=== PATIENT | male | born 1945 | race Caucasian/White ===

== ENCOUNTER 2019-03-23 10:54 | Inpatient (IN) ==
--- NOTE | 2019-02-22 10:50 | Anesthesiology Consultation ---
Date of Service February 22, 2019 Assessment & Plan (1) Encounter for pre-operative examination: - Check BSG AM DOS - Check coags AM DOS (warfarin instructions per surgeon/prescriber) - Cardio: 02/28/19: "Pt is at an acceptable moderate risk for his orthopedic surgery- no further cardiac testing necessary." Chart Review Chart Review: Acceptable Risk for Surgery and Patient seen in Pre Admission Testing Teaching & Discussion Pre-Anesthesia Teaching/Discussion Notes: Instructed NPO after midnight before surgery,except medications with 15 cc of water. Medication instructions provided according to the PAT guidelines. History Surgery Operation Date: 03/23/19 14:00 Proposed Procedures p Right Shoulder Arthroscopic Subacromial Decompression, Distal Clavicle Excision, Rotator Cuff Repair, Bicep Tenodesis versus Tentatomy - Saran booker MD Height/Weight Height: 6 ft 1 in Weight: 104.2 kg Allergies Allergy/AdvReac Type Severity Reaction Status Date / Time Beta-Blockers AdvReac Unknown NIGHTMARES Verified 02/22/19 11:09 (Beta-Adrenergic Bloc Medications Home Medications Medication Instructions Recorded Confirmed Last Taken ascorbic acid (vitamin C) [Vitamin 500 mg PO QAM 02/14/19 02/14/19 Unknown C] atorvastatin 20 mg PO QAM 02/14/19 02/14/19 Unknown colchicine 0.6 mg PO DAILY PRN 02/14/19 02/14/19 Unknown diltiazem HCl [Cartia XT] 240 mg PO QAM 02/14/19 02/14/19 Unknown hydrochlorothiazide 25 mg PO QAM 02/14/19 02/14/19 Unknown latanoprost 1 drp OPHTHALMIC (EYE) PM 02/14/19 02/14/19 Unknown losartan 100 mg PO QAM 02/14/19 02/14/19 Unknown metformin 500 mg PO BID 02/14/19 02/14/19 Unknown tamsulosin 0.4 mg PO QPM 02/14/19 02/14/19 Unknown warfarin 5 mg PO DAILY 02/14/19 02/14/19 Unknown Past Medical History Medical History Atrial fibrillation CHRONIC ON WARFARIN BPH (benign prostatic hyperplasia) Chronic kidney disease STAGE III Diabetes mellitus, type 2 NIDDM Glaucoma Gout Hyperlipidemia Hypertension Nonischemic cardiomyopathy Rotator cuff tear, right REASON FOR UPCOMING SURGERY Past Surgical History Surgical History History of cardiac radiofrequency ablation History of colectomy 2/2 COLON POLYPS History of laser refractive surgery History of left knee replacement Hx of Achilles tendon repair LEFT Hx of appendectomy Hx of cholecystectomy Hx of repair of left rotator cuff Past Anesthesia History No Hx of Anesthesia Complications and No Family Hx of Anesthesia Complications History of PONV No Motion Sickness Screening History of Motion Sickness: No Social History Smoking Status: Former smoker tobacco type: cigarettes Do You Dip or Chew Tobacco: Yes (1/3 CAN/DAY; ADVISED NOT TO CHEW AM DOS) Smoking End Date: QUIT 14 YEARS AGO Hx Alcohol Use: Yes alcohol intake frequency: holidays/special occasions only Hx Substance Use: No Exercise / Class Metabolic Activity II 4-5 Yardwork/Stairs/Walk up hill Review of Systems Patient denies chest pain, shortness of breath, dyspnea on exertion, cough, wheezing, palpitations. Physical Exam Vital Signs VITALS BP 136/84 P 89 TEMP 97.6 SP02 98%RA RESP 18 PHYSICAL Full neck and c-spine range of motion. Full TMJ range of motion. TMD 3 finger breaths Mallampati Score 3 Dentition: sevceral missing molars Lungs: clear throughout to auscultation Cardiac: irregular rhythm; regular rate, no murmurs noted Spine: normal Carotid arteries: negative bruit Extremities: no edema Small oral opening Testing Electrocardiogram Date: 02/22/19 A. fib with PVC or aberrantly conducted complexes at 82bpm. NS STA. Chest X-Ray Date: 02/22/19 Findings: + NAD Lung volumes are at the upper limits of normal. Echocardiogram Date: 12/03/17 LVEF 44%. Mild diffuse LV HK. Mild LAE. Mild AR. Mild AV sclerosis. Mild SC. Laboratory Results 02/22/19 11:23 02/22/19 11:23 PT 27.5 Seconds (9.0-12.0) H 02/22/19 11:23 INR 2.9 (0.9-1.1) H 02/22/19 11:23 APTT 32.8 Seconds (21.0-31.0) H 02/22/19 11:23 Urine Color Yellow 02/22/19 Unknown Urine Appearance Clear (Clear) 02/22/19 Unknown Urine pH 5.5 (4.5-7.5) 02/22/19 Unknown Ur Specific [place] 1.020 (1.000-1.030) 02/22/19 Unknown Urine Protein Negative (Negative) 02/22/19 Unknown Urine Glucose (UA) Negative (Negative) 02/22/19 Unknown Urine Ketones Negative (Negative) 02/22/19 Unknown Urine Nitrite Negative (Negative) 02/22/19 Unknown Ur Leukocyte Esterase Trace (Negative) H 02/22/19 Unknown Urine WBC (Auto) 1-5 /hpf (0-5) 02/22/19 Unknown Urine RBC (Auto) 0-4 /hpf (0-4) 02/22/19 Unknown U Hyaline Cast (Auto) 0 /lpf (0-5) 02/22/19 Unknown U Epithel Cells (Auto) 0-5 /lpf (0-5) 02/22/19 Unknown Urine Bacteria (Auto) Negative (Negative) 02/22/19 Unknown
--- NOTE | 2019-02-22 10:54 | PAT Medication Instructions ---
Medication Instructions Date of Service February 22, 2019 Home Medications ascorbic acid (vitamin C) [Vitamin 500 mg PO QAM atorvastatin 20 mg PO QAM colchicine 0.6 mg PO DAILY PRN diltiazem HCl [Cartia XT] 240 mg PO QAM hydrochlorothiazide 25 mg PO QAM latanoprost 1 drp OPHTHALMIC (EYE) PM losartan 100 mg PO QAM metformin 500 mg PO BID tamsulosin 0.4 mg PO QPM warfarin 5 mg PO DAILY ASK your prescriber and surgeon warfarin 5 mg PO DAILY STOP taking 24 hours before surgery colchicine 0.6 mg PO DAILY PRN DO NOT take the morning of surgery ascorbic acid (vitamin C) [Vitamin 500 mg PO QAM hydrochlorothiazide 25 mg PO QAM losartan 100 mg PO QAM metformin 500 mg PO BID Take morning of surgery With a small sip of water, OTHERWISE NOTHING TO EAT OR DRINK AFTER MIDNIGHT: atorvastatin 20 mg PO QAM diltiazem HCl [Cartia XT] 240 mg PO QAM Take evening before surgery latanoprost 1 drp OPHTHALMIC (EYE) PM metformin 500 mg PO BID tamsulosin 0.4 mg PO QPM Other Notes If you have any questions please call us at [phone] or [phone] or [phone] or [phone]
--- NOTE | 2019-02-22 11:52 | XRay Report ---
XR chest Pre-admission PA/Lat CLINICAL HISTORY: Preoperative evaluation. COMPARISON STUDY: Chest radiograph March 05, 2010. FINDINGS: Lung volumes are at the upper limits of normal. There is no pneumothorax or pleural effusio n. Cardiac size is normal. Mediastinal contours are normal. No evidence for pulmonary edema. IMPRESSION: No acute cardiopulmonary findings. Electronically signed by: Ernie Madrigal M.D. 02/22/2019 11:51 AM
[2019-02-22 12:17] LABS: Basophils # (auto) 0.03 K/uL (0-0.2); Basophils % (auto) 0.4 %; Eosinophils # (auto) 0.23 K/uL (0-0.5); Eosinophils % (auto) 3.4 %; Hematocrit (blood only) 42.7 % (42-52); Hemoglobin 14.7 g/dL (14.0-18.0); Immature Granulocytes # (auto) 0.02 K/uL (0.00-0.02); Immature Granulocytes % (auto) 0.3 %; Lymphocytes # (auto) 1.53 K/uL (1.2-3.4); Lymphocytes % (auto) 22.8 %; Mean Corpuscular Hgb Conc 34.4 g/dL (32-36); Mean Corpuscular Volume 91.4 fL (80-100); Mean Platelet Volume 10.2 fL (7.4-10.4); Monocytes # (auto) 0.66 K/uL (0.11-0.59); Monocytes % (auto) 9.8 %; Neutrophils # (auto) 4.24 K/uL (1.4-6.5); Neutrophils % (auto) 63.3 %; Platelet Count 171 K/uL (130-400); RDW Coefficient of Variation 14.2 % (11.5-14.5); RDW Standard Deviation 47.7 fL (36.4-46.3); Red Blood Count 4.67 M/uL (4.7-6.1); White Blood Count 6.71 K/uL (4.8-10.8)
[2019-02-22 12:24] LABS: Appearance Urine Clear (Clear); Bacteria Urine Automated Negative (Negative); Bilirubin Urine Negative (Negative); Blood Urine Negative (Negative); Cast Urine Automated 0 /lpf (0-5); Color Urine Yellow; Epithelial Cell Urine Auto 0-5 /lpf (0-5); Glucose Urine UA Negative (Negative); Ketones Urine Negative (Negative); Leukocyte Esterase Urine Trace (Negative); Nitrite Urine Negative (Negative); Protein Urine Negative (Negative); RBC Urine Automated 0-4 /hpf (0-4); Urobilinogen Urine Negative (Negative); pH Urine 5.5 (4.5-7.5)
[2019-02-22 12:32] LABS: BUN Creatinine Ratio 20.1 (10-20); Calcium 9.6 mg/dl (8.5-10.1); Creatinine Clr Calc Pharmacy 57.6 ml/min; Est GFR (Non-African American) 46.6; Potassium 4.1 mmol/L (3.5-5.1)
[2019-02-22 12:33] LABS: INR 2.9 (0.9-1.1); Partial Thromboplastin Ratio 1.2; Partial Thromboplastin Time 32.8 Seconds (21.0-31.0); Prothrombin Time 27.5 Seconds (9.0-12.0)
--- NOTE | 2019-03-22 15:08 | History and Physical Report ---
DATE OF ADMISSION: 03/23/2019 CHIEF COMPLAINT: Chronic right shoulder pain. HISTORY OF PRESENT ILLNESS: This is a 73-year-old male patient of Dr. Carpenter who sustained a fall on the ice in the beginning of January. Since then, he has had chronic right shoulder pain that has failed conservative treatment. An MRI has confirmed impingement, AC arthritis, rotator cuff tear and biceps tendinopathy. The patient wished to proceed with surgical intervention at this time. PAST MEDICAL HISTORY: Atrial fibrillation, sleep apnea, diabetes mellitus, hypothyroidism, obesity. SOCIAL HISTORY: Nonsmoker, nondrinker. PAST SURGICAL HISTORY: Left knee, left shoulder, right Achilles, appendectomy, cholecystectomy. FAMILY HISTORY: Noncontributory. REVIEW OF SYSTEMS: Chronic right shoulder pain and weakness. Otherwise, denies any shortness of breath, chest pain, nausea, vomiting or any other joint complaints. MEDICATIONS: Atorvastatin 20 mg daily, diltiazem 240 mg daily, hydrochlorothiazide 25 mg daily, losartan 100 mg daily, metformin 500 mg twice daily, Flomax 0.4 mg daily, Coumadin 5 mg as directed, colchicine 0.6 mg twice daily, latanoprost 0.005% ophthalmic solution 1 drop in each eye at bedtime, vitamin C 500 mg chewable tablet daily. ALLERGIES: No known drug allergies. PHYSICAL EXAMINATION: GENERAL: Well-developed, well-nourished 73-year-old male in no acute distress. He is alert and oriented x3 and pleasant. HEENT: Normocephalic, atraumatic. Extraocular motions are intact. Pupils equal, reactive to light. HEART: Regular rate and rhythm. No murmurs. LUNGS: Clear. ABDOMEN: Soft, nontender, bowel sounds present. EXTREMITIES: Right shoulder reveals full range of motion with pain. He has positive [place]'s, positive impingement maneuvering. He is tender over his AC joint. He has 3+ to 4/5 strength globally. NEUROLOGIC: Neurovascularly, he is intact in his right upper extremity. DIAGNOSES: Right shoulder impingement, acromioclavicular arthritis, rotator cuff tear, and biceps tendinopathy. He also has a history of atrial fibrillation, sleep apnea, diabetes mellitus, hypothyroidism, and obesity. PLAN: The patient was advised of his diagnosis. Indications, risks, benefits, postop course have all been reviewed. The patient wished to proceed with a right arthroscopic subacromial decompression, distal clavicle excision, rotator cuff repair and biceps tenodesis versus tenotomy. Necessary consent forms, preoperative testing and clearances will be obtained.
[~2019-03-23 10:54] MED LIST: LR 15ML/HR IV SCH; LR 500ML BOLUS, THEN 15ML/HR IV SCH; ROPIVACAINE 0.5% 5 MG/ML 30 ML VIAL ONE
[2019-03-23] MEDS ORDERED: ONDANSETRON INJ 2 MG/ML 2 ML VIAL ONE (11:50)
[2019-03-23] MEDS ORDERED: MIDAZOLAM HCL 1 MG/ML 2ML VIAL ONE (11:50)
[2019-03-23] MEDS ORDERED: LIDOCAINE HCL 2% 2 ML VIAL/AMP(20MG/ML) INFIL ONE (11:50)
[2019-03-23] MEDS ORDERED: PROPOFOL IV EMULSION 10 MG/ML 20 ML VIAL IV ONE (11:50)
[2019-03-23] MEDS ORDERED: fentaNYL citrate 100 MCG/2 ML VIAL ONE (11:51)
--- NOTE | 2019-03-23 12:08 | History & Physical Bridge Note ---
Date of Service March 23, 2019 History & Physical Bridge Note I have examined the patient, reviewed the History & Physical and in the interval since the performance of the History & Physical I have noted the following changes of clinical significance: no changes noted
[2019-03-23] MEDS ORDERED: ePHEDrine sulfate 50 MG/ML AMP IV PRN (12:38)
[2019-03-23] MEDS ORDERED: ONDANSETRON INJ 2 MG/ML 2 ML VIAL IV PRN ×2 (12:38→18:55)
[2019-03-23] MEDS ORDERED: fentaNYL citrate 100 MCG/2 ML VIAL IV PRN (12:38)
[2019-03-23] MEDS ORDERED: ATROPINE SULFATE 0.1 MG/ML 10ML SYR IV PRN (12:38)
[2019-03-23 12:39] LABS: INR 1.1 (0.9-1.1); Partial Thromboplastin Ratio 0.9; Partial Thromboplastin Time 25.6 Seconds (21.0-31.0); Prothrombin Time 11.5 Seconds (9.0-12.0)
[2019-03-23] MEDS ORDERED: EpINEphrine HCL INJ 1 MG/ML 1ML SYRINGE ONE (13:22)
[2019-03-23] MEDS: CEFAZOLIN 2000MG 2,000 MG/15 ML SYR IV SCH ×2 (14:12→14:13)
[2019-03-23] MEDS ORDERED: EPINEPHrine HCL INJ 1 MG/ML 30ML ONE (14:27)
--- NOTE | 2019-03-23 15:05 | Procedure Note ---
Procedure Note Date of Service March 23, 2019 Supervising Physician Co-Signing Physician Notes Radial arterial line placed in ASU 2 in preparation for shoulder arthroscopy with Dr. Curran. Left wrist prepped with chlorhexidine and draped with sterile towels. Site infiltrated with 1 cc of 1% lidocaine. 20 G angiocath placed under sterile technique utilizing sterile gloves, surgical hats and masks. Catheter threaded using seldinger technique with return of pulsatile, bright red blood. Site covered with occlusive dressing and taped in place. Waveform consistent with correct arterial placement. After placement, fingers of procedural hand had normal perfusion. Patient tolerated procedure well without complications. Coding
[2019-03-23] MEDS ORDERED: NEOSTIGMINE METHYLSULFATE 5 MG/5 ML SYR ONE (16:01)
[2019-03-23] MEDS ORDERED: ROCURONIUM BROMIDE 10 MG/ML 5 ML VIAL ONE (16:01)
[2019-03-23] MEDS ORDERED: GLYCOPYRROLATE 0.2 MG/ML VIAL ONE (16:01)
[2019-03-23] MEDS ORDERED: PHENYLEPHRINE HCL 10 MG/ML VIAL ONE (16:55)
--- NOTE | 2019-03-23 17:35 | Post Operative Brief Note ---
Immediate Post Op Note v1 Date of Surgery March 23, 2019 Pre & Post Diagnosis Operation Date: 03/23/19 14:00 Pre-Op Diagnosis: Right Shoulder chronic posttraumatic rotator cuff tear AC joint arthritis impingement syndrome biceps tendinopathy Post-Op Diagnosis: Right shoulder large retracted chronic posttraumatic rotator cuff tear synovitis glenohumeral joint, glenohumeral joint osteoarthritis, degenerative glenoid labral tear, ruptured biceps tendon long head, chronic subacromial bursitis with bursal adhesions. Procedure Operation Date: 03/23/19 14:00 Actual Procedures p Right Shoulder Arthroscopic Subacromial Decompression, Distal Clavicle Excision, Rotator Cuff Repair, Debridement of Glenohumeral Joint(Right), subacromial bursectomy release subacromial bursal adhesions and anterior superior capsule release.- Saran Curran MD Surgeon Saran Curran MD Desk Operator Juni ZEE Estimated Blood Loss 20 Findings Consistent with Post-Op Diagnosis Anesthesia Type General Regional Complications none Disposition Accompanied Patient To Recovery: No Disposition: Recovery Room Overlapping Procedure I was immediately available: during the entire case.
--- NOTE | 2019-03-23 17:43 | Operative Report ---
Post Operative Report Pre & Post Diagnosis Operation Date: 03/23/19 14:00 Pre-Op Diagnosis: Chronic retracted right shoulder posttraumatic rotator cuff tear, AC joint arthritis impingement syndrome biceps tendinopathy Post-Op Diagnosis: Chronic retracted right shoulder posttraumatic rotator cuff tear, AC joint arthritis impingement syndrome, glenohumeral osteoarthritis and synovitis, degenerative glenoid labral tear, subacromial bursitis bursal adhesions, long head biceps rupture. Procedure Operation Date: 03/23/19 14:00 Actual Procedures p Right Shoulder Arthroscopic Subacromial Decompression, Distal Clavicle Excision, Rotator Cuff Repair, Debridement of Glenohumeral Joint(Right) and labrum, subacromial bursectomy with release subacromial bursal adhesions, anterior superior capsule release.- Saran Curran MD Surgeon Saran Curran MD [employer] Deputy Director Juni ZEE Estimated Blood Loss 20 Findings Consistent with Post-Op Diagnosis Specimens None Anesthesia Type General Regional Complications None Disposition Accompanied Patient To Recovery: No Disposition: Recovery Room Indications 73-year-old male with right shoulder pain weakness status post a subacute fall. Patient never regained strength never drained normal function has chronic weakness dysfunction of the shoulder. X-rays and MRI demonstrate type III acromion hypertrophic AC joint arthritis large rotator cuff tear with retraction involving supraspinatus and infraspinatus biceps tendinopathy. Description of Procedure The patient was to the operating room anesthetized under regional block and general anesthesia. The patient was positioned on the operating table in the 70 beachchair position. All of the other extremities were well-padded. The right upper extremity was prepped and draped in the usual sterile fashion. Examination demonstrated good passive range of motion subacromial crepitation some hypertrophy AC joint. Arthroscopy of the shoulder was performed via anterior and posterior arthroscopy portals. Posterior portal was placed in the soft spot and the anterior portal was placed in the rotator interval. Subsequent portals included lateral subacromial working portal and posterior superior lateral and anterior superior lateral incisions for suture anchor placement, and anterolateral small incision for traction suture. The following findings were noted: The glenohumeral joint findings demonstrated there was a 15 mm diameter area of grade 4 wear on the humeral head with delaminating edges toward the anterior superior humeral head. Remainder the humerus had good articular surface. The glenoid still had intact articular surface. There is an anteroinferior glenoid labral tear with a displaced flap. Biceps tendon was torn and retracted. There was synovitis of the glenohumeral joint. The subscapularis tendon was intact. The supraspinatus tendon was torn and retracted as well as the infraspinatus tendon which was torn and retracted. The teres minor was still intact. There was a split between the teres minor and infraspinatus. There was some tendinopathy of the teres minor at the attachment site. At the area of the tear there were small tongues of intact tissue of the supraspinatus and infraspinatus where there is soft tissue failure of both tendons with some retained tissue on the greater tuberosity consistent with soft tissue disruption. There was fraying of the CA ligament type III acromion process there is hypertrophic AC joint arthritis there is grade 4 DJD AC joint. There was bursal scarred adhesions medially restricting some of the motion of the rotator cuff. There is synovitis of the capsule and glenohumeral joint. Attention was first taken to performing a thorough debridement of the glenohumeral joint. All the delaminated flaps around the chondral lesion of the humeral head were removed and the bone was lightly debrided. The labrum was debrided back to stable intact tissue. Remnants of the biceps superior labral debrided back to the labrum. I moved some of the synovium in the rotator interval area and coagulate bleeders as necessary with the radio frequency ablator. I did a into superior capsular release exposing the base of the coracoid and releasing under the supraspinatus and infraspinatus tendons I released and the capsules were again mobilized chronically retracted rotator cuff tear. The footprint of the supraspinatus and infraspinatus were debrided removing all the remaining tissue that was still in the greater tuberosity and debrided from the articular margin out the lateral greater tuberosity. Then in the subacromial space I did a thorough subacromial bursectomy to fully visualize rotator cuff tear pattern. I debrided some of the superior surface of the teres minor and lightly debride the edges of the tear and placed a traction suture was scorpion suture passer and a large stack technique through the infraspinatus and then through an accessory portal passed the suture out so we could use lateral portals working portal working cannula. Then placed traction on the rotator cuff and then started releasing the bursal adhesions on the bursal surface gradually toes so we could mobilize the rotator cuff up. I was able to mobilize rotator cuff to cover about 50% of the footprint but loose tendon loss and retraction so we could not reduce it on a percent back to normal without any tension on repair which would increase risk of failure so I chose to do some medialization using the resector blade to take the articular surface back about 4 more millimeters exposing similar bone at the footprint articular surface junction so that we could medialize repair under less tension. The rotator cuff was then repaired with a [id number] #2 ultra braid suture between the infraspinatus and teres minor posteriorly a FiberWire tape was used as ripstop suture technique through the infraspinatus and supraspinatus placed in inverted mattress fashion. A triple loaded Helicoil anchor midway in the footprint of the infraspinatus and supraspinatus which were 5.5 [employer] helical anchors. The ultra braid sutures were passed around the ripstop suture when possible for additional fixation. The 6 sutures were passed spent in the rotator cuff tear from anterior to posterior and then the sutures were tied in simple fashion and then the FiberWire tapes were placed into 5.5 footprint anchors laterally take tension off the repair for additional repair support. The repair was secure with the arm at the side without tension. The repair was secure with gentle range of motion. Bone quality was actually fairly good and held the anchors well. The bursa and periosteum on the undersurface of the acromion was ablated with the radiofrequency ablator and the CA ligament was released off the anterior acromion. The CA ligament was debrided back. A 5.5 bur was used to plane down the acromion to type I flat shape. A radio frequency ablator was used to ablate the undersurface of 1 cm of the distal clavicle ablating the inferior capsule. This exposed the spurs on the undersurface of the clavicle. A 5.5 bur was used to resect 1 cm distal clavicle using the kayden through both the lateral and anterior portal. The superior and posterior capsule was preserved for stability. The portal sites were closed with interrupted nylon sutures. Sterile dressings were applied and a sling immobilizer. The patient tolerated the procedure well. My physician nurses assistant Juni ZEE, assisted in arm positioning, instrument management, suture management when indicated, incision closure, sling application, and will participate in the postoperative care of the patient. I attest to the content of the Intraoperative Record and any orders documented t herein. Any exceptions are noted below.
--- NOTE | 2019-03-23 18:03 | Anesthesiology Progress Note ---
Date of Service March 23, 2019 Anesthesia Post Procedure Vital Signs Vital Signs: Temp Pulse Pulse Resp BP Pulse Ox 03/23/19 17:54 103 H 20 102/62 96 03/23/19 17:45 112 H 20 103/66 97 03/23/19 17:36 36.1 C L 112 H 18 97/67 L 95 03/23/19 11:55 36.5 C 95 H 20 150/105 H 95 Transfer of Care Handoff Completed per policy Notes Mental Status: alert / awake / arousable and participated in evaluation Patient Amnestic to Procedure: Yes Nausea / Vomiting: adequately controlled Pain: adequately controlled Airway Patency, RR, SpO2: stable & adequate BP & HR: stable & adequate Hydration State: stable & adequate Anesthetic Complications: no major complications apparent
[2019-03-23] MEDS ORDERED: BISACODYL 10 MG SUPP PR PRN (18:55)
[2019-03-23] MEDS ORDERED: HYDROmorphone INJ 0.5 MG/0.5 ML SYR IV PRN (18:55)
[2019-03-23] MEDS ORDERED: NALOXONE HCL 0.4 MG/1 ML VIAL/CARP IV PRN (18:55)
[2019-03-23] MEDS ORDERED: OXYCODONE HCL IR 5 MG TAB (IMMEDIATE RELEASE) PO PRN (18:55)
[2019-03-23] MEDS ORDERED: COLCHICINE 0.6 MG TAB PO PRN (18:55)
[2019-03-23] MEDS ORDERED: MAGNESIUM HYDROXIDE SUSP 30 ML UDC PO PRN (18:55)
[2019-03-23] MEDS ORDERED: METOCLOPRAMIDE HCL INJ 5 MG/ML 2 ML VIAL IV PRN (18:55)
[2019-03-23] MEDS ORDERED: PHARMACY GLYCEMIC MGMT CONSULT PRN (19:53)
[2019-03-23] MEDS ORDERED: WARFARIN SOD 7.5 MG TAB PO SCH (20:00)
[2019-03-23] MEDS: SODIUM CHLORIDE 0.9% 1000ML 1,000 ML IV SCH (20:26)
[2019-03-23] MEDS: DOCUSATE SODIUM 100 MG CAP PO SCH (20:28)
[2019-03-23] MEDS: dilTIAZem HCL 240 MG CAPCR PO SCH (20:29)
[2019-03-23] MEDS: INSULIN ASPART 100 UNITS/ML 3 ML PEN SC SCH (20:39)
[2019-03-23] MEDS ORDERED: SENNA 8.6 MG TAB PO SCH (21:00)
[2019-03-23] MEDS ORDERED: TAMSULOSIN HCL 0.4 MG CAP PO SCH (21:00)
[2019-03-23] MEDS ORDERED: LATANOPROST 0.005% OP SOLN 2.5 ML BTL OP SCH (21:00)
[2019-03-23] MEDS ORDERED: DEXTROSE 50% 50 ML SYRINGE IV PRN (21:45)
[2019-03-23] MEDS ORDERED: GLUCOSE 40% GEL 15 GM TUBE PO PRN (21:45)
[2019-03-23] MEDS ORDERED: GLUCAGON FOR INJ 1 MG VIAL IM PRN (21:45)
[2019-03-23] MEDS ORDERED: GLUCOSE 10 TABS/TUBE PO PRN (21:45)
[2019-03-23] MEDS ORDERED: CARBOHYDRATES FOR HYPOGLYCEMIA PO PRN (21:45)
[2019-03-23] MEDS: ACETAMINOPHEN 500 MG TAB PO SCH (21:57)
--- NOTE | 2019-03-23 22:05 | Consultation Report ---
DATE OF CONSULTATION: 03/23/2019 CHIEF COMPLAINT: Status post right shoulder surgery, consult for medical management. HISTORY OF PRESENT ILLNESS: This is a 73-year-old male with past medical history significant for atrial fibrillation, diabetes, hyperlipidemia, hypertension, chronic kidney disease stage III, osteoarthrosis, obesity, nonischemic cardiomyopathy. He is status post right shoulder surgery, tolerated the procedure okay. Pain is under control. Resting comfortably and hemodynamically stable. Denies any chest pain. No shortness of breath, no cough, no fever. Feeling somewhat cold. No headache, no blurred visions, no nausea. Does not feel like eating his dinner. No abdominal pain. Otherwise doing okay. ALLERGIES: ATENOLOL, BENICAR. PAST MEDICAL HISTORY: As mentioned above. PAST SURGICAL HISTORY: Left total knee arthroplasty, colonoscopy, right knee cartilage repair, removal of ruptured appendix, cholecystectomy, repair of the ruptured rotator cuff, Achilles tendon tenotomy, and laparoscopic hernia repair. MEDICATIONS: The patient is on atorvastatin 20 mg p.o. daily, diltiazem CD 240 mg p.o. daily, hydrochlorothiazide 25 mg p.o. daily, Cozaar 100 mg p.o. daily, metformin 500 mg p.o. b.i.d., Flomax 0.4 mg p.o. daily, Coumadin 5 mg as directed, colchicine 0.6 mg b.i.d., ascorbic acid 500 mg daily, latanoprost 1 drop in each eye at night. FAMILY HISTORY: Significant for mother had breast cancer, father of [place] at age of 47. SOCIAL HISTORY: . Quit smoking in 2005. Prior to that smoked for 42 years. Alcohol occasional. No drug use. REVIEW OF SYMPTOMS: As per HPI. Rest of the review of symptoms negative. PHYSICAL EXAMINATION: GENERAL: The patient is of moderate build, not in acute distress. VITAL SIGNS: Temperature 36.6, pulse 86, respiratory rate 20, blood pressure 105/70, oxygen 98% on 4 liters. HEENT: No pallor, no icterus. Extraocular muscles intact. NECK: No neck masses. CARDIOVASCULAR: S1, S2 heard, regular rate and rhythm, no murmur, no gallop. RESPIRATORY SYSTEM: Normal AP diameter. No accessory muscle use. No wheezing, no crackles. ABDOMEN: Soft, bowel sounds present. Nontender. No distention. CENTRAL NERVOUS SYSTEM: Nonfocal. EXTREMITIES: Status post right shoulder surgery. Right upper extremity in sling. LABORATORY DATA: PT 11.5, INR 1.1, APTT 25.6. ASSESSMENT AND PLAN: This is a 73-year-old male status post right shoulder surgery. 1. Right shoulder surgery, tolerated procedure okay. Further management as per orthopedics. Pain control and disposition as per orthopedics. 2. Diabetes. Holding metformin. ISS. Will monitor. 3. History of atrial fibrillation, rate controlled on Cardizem CD.To Resume Coumadin as soon as possible as per orthopedics. 4. Hypertension, on diltiazem, hydrochlorothiazide and losartan. We will monitor the blood pressure. 5. History of hyperlipidemia, on statin. 6. History of benign prostatic hyperplasia, on Flomax. 7. Chronic kidney disease stage III. Will follow the labs. 8. Deep venous thrombosis prophylaxis as per orthopedics. 9. Disposition as per orthopedics. MTDD
[2019-03-24] MEDS: ACETAMINOPHEN 500 MG TAB PO SCH (05:45)
[2019-03-24] MEDS: SODIUM CHLORIDE 0.9% 1000ML 1,000 ML IV SCH (06:23)
[2019-03-24 06:40] LABS: Basophils # (auto) 0.02 K/uL (0-0.2); Basophils % (auto) 0.2 %; Eosinophils # (auto) 0.12 K/uL (0-0.5); Eosinophils % (auto) 1.2 %; Hematocrit (blood only) 40.3 % (42-52); Hemoglobin 13.6 g/dL (14.0-18.0); Immature Granulocytes # (auto) 0.03 K/uL (0.00-0.02); Immature Granulocytes % (auto) 0.3 %; Lymphocytes # (auto) 1.71 K/uL (1.2-3.4); Lymphocytes % (auto) 16.9 %; Mean Corpuscular Hgb Conc 33.7 g/dL (32-36); Mean Platelet Volume 9.7 fL (7.4-10.4); Monocytes # (auto) 0.87 K/uL (0.11-0.59); Monocytes % (auto) 8.6 %; Neutrophils # (auto) 7.34 K/uL (1.4-6.5); Neutrophils % (auto) 72.8 %; Platelet Count 158 K/uL (130-400); RDW Standard Deviation 46.7 fL (36.4-46.3); Red Blood Count 4.38 M/uL (4.7-6.1); White Blood Count 10.09 K/uL (4.8-10.8)
[2019-03-24 07:06] LABS: BUN Creatinine Ratio 15.5 (10-20); Calcium 8.2 mg/dl (8.5-10.1); Creatinine Clr Calc Pharmacy 68.1 ml/min; Est GFR (African American) 65.4; Est GFR (Non-African American) 56.5; Potassium 3.7 mmol/L (3.5-5.1)
[2019-03-24] MEDS: dilTIAZem HCL 240 MG CAPCR PO SCH (07:52)
[2019-03-24] MEDS: DOCUSATE SODIUM 100 MG CAP PO SCH (07:53)
[2019-03-24 08:14] LABS: Estimated Average Glucose 131 mg/dl; Hemoglobin A1C 6.2 % (4.5-5.6)
[2019-03-24] MEDS: INSULIN ASPART 100 UNITS/ML 3 ML PEN SC SCH (08:50)
[2019-03-24] MEDS ORDERED: MULTIVITAMIN TAB PO SCH (09:00)
[2019-03-24] MEDS ORDERED: ASCORBIC ACID 500 MG TAB PO SCH (09:00)
[2019-03-24] MEDS ORDERED: hydroCHLOROthiazide 25 MG TAB PO SCH (09:00)
[2019-03-24] MEDS ORDERED: LOSARTAN POTASSIUM 50 MG TAB PO SCH (09:00)
[2019-03-24] MEDS ORDERED: ATORVASTATIN 20 MG TAB PO SCH (09:00)
--- NOTE | 2019-03-24 09:20 | Progress Note ---
DATE: 03/24/2019 SUBJECTIVE: The patient is postop day #1 status post right shoulder rotator cuff repair by Dr. Curran. Currently, the patient is sitting up at the bedside, eating his breakfast. He has no complaints at this time. Pain is controlled. He is hoping to go home this morning. OBJECTIVE: Dressings are clean, dry and intact. Neurovascular is intact. Sling is in place and appears comfortable. The patient has good range of motion of his fingers and wrist at this time. ASSESSMENT: Postop day #1 status post rotator cuff repair, right shoulder. PLAN: The patient will be discharged to home today and plans were for be outpatient PT and follow up with Dr. Curran in 2 weeks.
[2019-03-25] MEDS ORDERED: WARFARIN SOD 5 MG TAB PO SCH (16:00)
--- NOTE | 2019-04-05 15:28 | Discharge Summary ---
HISTORY OF PRESENT ILLNESS: This is a 73-year-old male patient of Dr. Carpenter who sustained a fall on the ice in the beginning of January. Since then, he has had chronic right shoulder pain and weakness and he had failed conservative treatment. An MRI confirmed impingement, AC arthritis, rotator cuff tear and biceps tendinopathy. The patient wished to proceed with surgical intervention. PAST MEDICAL HISTORY: Atrial fibrillation, sleep apnea, diabetes mellitus, hypothyroidism, and obesity. POSTOPERATIVE COURSE: The patient underwent a right shoulder arthroscopic subacromial decompression, distal clavicle excision, rotator cuff repair on 03/23/2019. He was admitted for observation due to his past medical history comorbidities. He did very well postoperatively and was discharged home on postoperative day #1. PHYSICAL EXAMINATION: On discharge, right shoulder dressings were clean, dry and intact. There was no drainage. There was no redness. His fingers were mobile. Sling was intact. Neurologically and neurovascularly, he is intact in his right upper extremity. DIAGNOSES: Status post right shoulder rotator cuff repair, subacromial decompression, distal clavicle excision. He also has a history of atrial fibrillation, sleep apnea, diabetes mellitus, hypothyroidism, and obesity. PLAN: The patient was discharged home. He will continue his preadmission medications with the addition of pain medications. He will be in physical therapy in 2-3 weeks. He will follow up as an outpatient as scheduled.
== END 2019-03-24 10:27 | disposition home or self-care (01) | DRG 512 ==
LOC: ASU 10:54 → 3E 17:33

== ENCOUNTER 2020-01-05 05:00 | Inpatient (IN) ==
--- NOTE | 2019-12-15 15:38 | PAT Medication Instructions ---
Medication Instructions Date of Service December 15, 2019 Home Medications Medication Instructions Recorded oxycodone-acetaminophen [Percocet] 1 - 2 tab PO .q4-6h PRN #30 tab 03/24/19 ascorbic acid (vitamin C) [Vitamin C] 500 mg PO QAM atorvastatin 20 mg PO QAM colchicine 0.6 mg PO DAILY PRN diltiazem HCl [Cartia XT] 240 mg PO QAM hydrochlorothiazide 25 mg PO QAM losartan 100 mg PO QAM metformin 500 mg PO BID tamsulosin 0.4 mg PO QPM warfarin 5 mg PO 2XWK oxycodone-acetaminophen [Percocet] 1 - 2 tab PO .q4-6h PRN warfarin 7.5 mg PO 5XWK ASK your prescriber and surgeon warfarin 5 mg PO 2XWK warfarin 7.5 mg PO 5XWK STOP taking 48 hours before surgery colchicine 0.6 mg PO DAILY PRN DO NOT take the morning of surgery ascorbic acid (vitamin C) [Vitamin C] 500 mg PO QAM hydrochlorothiazide 25 mg PO QAM losartan 100 mg PO QAM metformin 500 mg PO BID Take morning of surgery With a small sip of water, OTHERWISE NOTHING TO EAT OR DRINK AFTER MIDNIGHT: atorvastatin 20 mg PO QAM diltiazem HCl [Cartia XT] 240 mg PO QAM oxycodone-acetaminophen [Percocet] 1 - 2 tab PO .q4-6h PRN (okay to take up to 4 hours prior to surgery if needed) Take evening before surgery metformin 500 mg PO BID tamsulosin 0.4 mg PO QPM oxycodone-acetaminophen [Percocet] 1 - 2 tab PO .q4-6h PRN (if needed) Other Notes If you have any questions please call us at [phone] or [phone] or [phone] or [phone]
--- NOTE | 2019-12-19 12:00 | Anesthesiology Consultation ---
Date of Service December 19, 2019 Assessment & Plan (1) Encounter for pre-operative examination: - Check BSG, coags AM DOS (warfarin instructions per surg chin/prescriber/anticogulation clinic). - PCP: 12/09/19: "I see no contraindications to the planned surgery." - Cardiology: 10/10/19: "Pt doing well from a cardiovascular perspective at this time.. unable to tolerate BB due to nightmares and he needs AVN control so we opted with diltiazem despite the EF being on the lower end.. it has been stable the past 2 years.. He is an acceptable moderate cardiovascular risk.. no further cardiac testing necessary." F/U 1 year recommended. Chart Review Chart Review: Acceptable Risk for Surgery and Patient seen in Pre Admission Testing Teaching & Discussion Pre-Anesthesia Teaching/Discussion Notes: Instructed NPO after midnight before surgery,except medications with 15 cc of water. Medication instructions provided according to the PAT guidelines. History Surgery Operation Date: 01/05/20 12:35 Proposed Procedures p Left Total Knee Poly Exchange, Possible Revision Total Knee Arthroplasty - Saran Curran MD Height/Weight Height: 6 ft 1 in Weight: 103.1 kg Allergies Allergy/AdvReac Type Severity Reaction Status Date / Time Beta-Blockers AdvReac Unknown NIGHTMARES Verified 12/12/19 14:21 (Beta-Adrenergic Bloc Medications Home Medications Medication Instructions Recorded Confirmed Last Taken ascorbic acid (vitamin C) [Vitamin 500 mg PO QAM 02/14/19 12/12/19 10/02/19 C] atorvastatin 20 mg PO QAM 02/14/19 12/12/19 10/02/19 colchicine 0.6 mg PO DAILY PRN 02/14/19 12/12/19 Unknown diltiazem HCl [Cartia XT] 240 mg PO QAM 02/14/19 12/12/19 10/02/19 hydrochlorothiazide 25 mg PO QAM 02/14/19 12/12/19 10/02/19 losartan 100 mg PO QAM 02/14/19 12/12/19 10/02/19 metformin 500 mg PO BID 02/14/19 12/12/19 10/02/19 tamsulosin 0.4 mg PO QPM 02/14/19 12/12/19 10/02/19 warfarin 5 mg PO 2XWK 02/14/19 12/12/19 10/02/19 oxycodone-acetaminophen [Percocet] 1 - 2 tab PO .q4-6h PRN #30 tab 03/24/19 12/12/19 Unknown warfarin 7.5 mg PO 5XWK 12/12/19 12/12/19 Unknown Past Medical History Medical History Atrial fibrillation chronic, on warfarin BPH (benign prostatic hyperplasia) Chronic kidney disease stage III- baseline creatinine 1.5-1.6 range Diabetes mellitus, type 2 NIDDM Glaucoma Gout Hyperlipidemia Hypertension Nonischemic cardiomyopathy Exercise / Class Metabolic Activity III < 4 Walking/Shop/Light housework Past Family History Family History Mother FHx: breast cancer Other No family history of adverse response to anesthesia Past Surgical History Surgical History History of cardiac radiofrequency ablation REMOTE/YEARS AGO History of cataract surgery bilateral History of colonoscopy with polypectomy History of laser refractive surgery History of left knee replacement Hx of Achilles tendon repair LEFT Hx of appendectomy Hx of cholecystectomy S/P rotator cuff repair bilateral Past Anesthesia History No Hx of Anesthesia Complications and No Family Hx of Anesthesia Complications History of PONV No Hx of PONV and No Hx of Motion Sickness Social History Smoking Status: Never smoker tobacco type: smokeless tobacco Do You Dip or Chew Tobacco: Yes (3 dips daily (advised NPO AM DOS) Hx Alcohol Use: Yes Alcohol type: beer alcohol intake frequency: holidays/special occasions only Hx Substance Use: No substance use type: does not use Review of Systems Patient denies chest pain, shortness of breath, cough, wheezing, palpitations. Physical Exam Vital Signs VITALS BP 118/76 P 92 TEMP 97.4 SP02 95%RA RESP 18 PHYSICAL Full neck and c-spine range of motion. Full TMJ range of motion. TMD 3 nger breaths Mallampati Score 3 Dentition: missing sides/molars Lungs: clear throughout to auscultation Cardiac: regular rate, iregular rhythm, no murmurs noted Spine: normal Carotid arteries: negative bruit Extremities: no edema Testing Laboratory Results 12/19/19 12:16 PT 25.1 Seconds (9.0-12.0) H 12/19/19 12:16 INR 2.6 (0.9-1.1) H 12/19/19 12:16 APTT 32.8 Seconds (21.0-31.0) H 12/19/19 12:16 Urine Color Yellow 12/19/19 12:16 Urine Appearance Clear (Clear) 12/19/19 12:16 Urine pH 6.5 (4.5-7.5) 12/19/19 12:16 Ur Specific [place] 1.019 (1.000-1.030) 12/19/19 12:16 Urine Protein Negative (Negative) 12/19/19 12:16 Urine Glucose (UA) Negative (Negative) 12/19/19 12:16 Urine Ketones Negative (Negative) 12/19/19 12:16 Urine Nitrite Negative (Negative) 12/19/19 12:16 Ur Leukocyte Esterase Negative (Negative) 12/19/19 12:16 Blood Type O Positive 12/19/19 12:16 Antibody Screen NEGATIVE 12/19/19 12:16 12/05/19 SODIUM 144 POTASSIUM 4.0 CHLORIDE 103 CO2 29 BUN 27 CREATININE 1.6 (GFR 41.8) GLUCOSE 120 HGBA1C 6.3% Electrocardiogram Date: 02/22/19 A. fib with PVC's or aberrantly conducted complexes at 82bpm. NS STA. Chest X-Ray Date: 12/15/19 Findings: + NAD Echocardiogram Date: 12/03/17 LVEF 44%. Mild diffuse LV HK. Mild LAE. Mild AR/AV sclerosis.
[2019-12-19 13:13] LABS: Appearance Urine Clear (Clear); Basophils # (auto) 0.02 K/uL (0-0.2); Basophils % (auto) 0.3 %; Bilirubin Urine Negative (Negative); Blood Urine Negative (Negative); Color Urine Yellow; Eosinophils # (auto) 0.14 K/uL (0-0.5); Eosinophils % (auto) 2.1 %; Glucose Urine UA Negative (Negative); Hematocrit (blood only) 48.9 % (42-52); Hemoglobin 16.8 g/dL (14.0-18.0); Immature Granulocytes # (auto) 0.02 K/uL (0.00-0.02); Immature Granulocytes % (auto) 0.3 %; Ketones Urine Negative (Negative); Leukocyte Esterase Urine Negative (Negative); Lymphocytes # (auto) 1.44 K/uL (1.2-3.4); Lymphocytes % (auto) 21.8 %; Mean Corpuscular Hemoglobin 31.6 pg (25-34); Mean Corpuscular Hgb Conc 34.4 g/dL (32-36); Mean Corpuscular Volume 92.1 fL (80-100); Mean Platelet Volume 10.6 fL (7.4-10.4); Monocytes # (auto) 0.59 K/uL (0.11-0.59); Monocytes % (auto) 8.9 %; Neutrophils % (auto) 66.6 %; Nitrite Urine Negative (Negative); Platelet Count 178 K/uL (130-400); Protein Urine Negative (Negative); RDW Coefficient of Variation 13.8 % (11.5-14.5); RDW Standard Deviation 46.2 fL (36.4-46.3); Red Blood Count 5.31 M/uL (4.7-6.1); Specific Gravity Urine 1.019 (1.000-1.030); Urobilinogen Urine Negative (Negative); White Blood Count 6.61 K/uL (4.8-10.8); pH Urine 6.5 (4.5-7.5)
[2019-12-19 13:40] LABS: INR 2.6 (0.9-1.1); Partial Thromboplastin Ratio 1.2; Partial Thromboplastin Time 32.8 Seconds (21.0-31.0); Prothrombin Time 25.1 Seconds (9.0-12.0)
--- NOTE | 2020-01-04 23:21 | History and Physical Report ---
DATE OF ADMISSION: 01/05/2020 CHIEF COMPLAINT: Chronic left knee pain. HISTORY OF PRESENT ILLNESS: This is a 74-year-old male patient of Dr. Curran'terence complaining of chronic left knee pain and instability for approximately 6 months now. The patient had a total knee arthroplasty 11 years ago. He reports no trauma. 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 PAST MEDICAL HISTORY: Hypertension, atrial fibrillation, sleep apnea, diabetes mellitus. SOCIAL HISTORY: Nonsmoker, nondrinker. PAST SURGICAL HISTORY: Left knee, right shoulder, appendectomy, cholecystectomy, left Achilles. FAMILY HISTORY: Noncontributory. REVIEW OF SYSTEMS: Chronic left knee pain and instability. Otherwise, denies any shortness of breath, chest pain, nausea, vomiting or any other joint complaints. MEDICATIONS: 1. Lipitor 20 mg daily. 2. Cardizem 240 mg daily. 3. Hydrochlorothiazide 25 mg daily. 4. Cozaar 100 mg daily. 5. Metformin 500 mg 1 tablet twice daily. 6. Coumadin 5 mg 1-2 tablets every day as directed. 7. Vitamin C 500 mg daily. 8. latanoprost 0.005% eyedrops each eye daily as needed. ALLERGIES: No known drug allergies. PHYSICAL EXAMINATION: GENERAL: Well-developed, well-nourished 74-year-old male, in no acute distress. He is alert and oriented x3 and pleasant. HEENT: Normocephalic, atraumatic. Extraocular motions are intact. Pupils are equal and reactive to light. HEART: Regular rate and rhythm. No murmurs. LUNGS: Clear. ABDOMEN: Soft and nontender. Bowel sounds present. EXTREMITIES: Left knee positive clicking with pain. Limited range of motion of 0-120 with pain. NEUROLOGIC AND NEUROVASCULAR: He is intact, 4/5 strength. DIAGNOSES: Left knee instability with poly wear status post total knee arthroplasty, hypertension, atrial fibrillation, sleep apnea, diabetes mellitus. PLAN: The patient was advised of diagnosis. Indications, risks, benefits, postop course have all been reviewed. The patient wished to proceed with left knee total knee arthroplasty poly exchange, possible revision. Necessary consent forms, preoperative testing and clearances will be obtained. TANNER
[2020-01-05] MEDS ORDERED: TRANEXAMIC ACID 1,000 MG **IV Intra-op IV SCH (06:00)
[2020-01-05] MEDS ORDERED: FAMOTIDINE 20 MG TAB PO SCH (06:00)
[2020-01-05] MEDS ORDERED: ACETAMINOPHEN 500 MG TAB PO SCH (06:00)
[2020-01-05] MEDS ORDERED: METOCLOPRAMIDE HCL 10 MG TABLET PO SCH (06:00)
[2020-01-05] MEDS ORDERED: GABAPENTIN 300 MG CAP PO SCH (06:00)
[2020-01-05] MEDS ORDERED: ROPIVACAINE 0.5% HCL/PF 150 MG, BUPIVACAINE 0.5% MPF 30 ML, EPINEPHrine 30MG/30ML (OR U... INSTIL SCH (06:00)
[2020-01-05] MEDS ORDERED: CEFAZOLIN 2000MG 2,000 MG/15 ML SYR IV SCH (06:00)
[2020-01-05] MEDS ORDERED: CeleBREX 200 MG CAP PO SCH ×2 (06:00→21:00)
[2020-01-05] MEDS ORDERED: TRANEXAMIC ACID 1,000 MG **IV Pre-op IV SCH (06:00)
[2020-01-05] MEDS ORDERED: LR 500ML BOLUS, THEN 15ML/HR IV SCH (06:00)
[2020-01-05] MEDS ORDERED: BUPIVACAINE 0.5 % 5 MG/1 ML PF 10ML VIAL ONE (06:12)
[2020-01-05] MEDS ORDERED: ROPIVACAINE 0.5% 5 MG/ML 30 ML VIAL ONE (06:12)
[2020-01-05 06:15] LABS: INR 1.1 (0.9-1.1); Partial Thromboplastin Ratio 0.9; Partial Thromboplastin Time 24.8 Seconds (21.0-31.0); Prothrombin Time 11.3 Seconds (9.0-12.0)
[2020-01-05] MEDS ORDERED: MIDAZOLAM HCL 1 MG/ML 2ML VIAL ONE (06:33)
[2020-01-05] MEDS ORDERED: LIDOCAINE HCL 2% 2 ML VIAL/AMP(20MG/ML) INFIL ONE (06:33)
[2020-01-05] MEDS ORDERED: ONDANSETRON INJ 2 MG/ML 2 ML VIAL ONE (06:33)
[2020-01-05] MEDS ORDERED: GLYCOPYRROLATE 0.2 MG/ML VIAL ONE (06:33)
[2020-01-05] MEDS ORDERED: PROPOFOL IV EMULSION 10 MG/ML 20 ML VIAL IV ONE ×2 (06:33→08:29)
[2020-01-05] MEDS ORDERED: KETAMINE HCL INJ 50 MG/ML 10 ML VIAL ONE (06:34)
[2020-01-05] MEDS ORDERED: ONDANSETRON INJ 2 MG/ML 2 ML VIAL IV PRN ×2 (06:45→10:19)
[2020-01-05] MEDS ORDERED: HYDROmorphone INJ 1 MG/ML SYRINGE IV PRN (06:45)
[2020-01-05] MEDS ORDERED: ePHEDrine sulfate 50 MG/ML AMP IV PRN (06:45)
[2020-01-05] MEDS ORDERED: ATROPINE SULFATE 0.1 MG/ML 10ML SYR IV PRN (06:45)
--- NOTE | 2020-01-05 06:55 | History & Physical Bridge Note ---
Date of Service January 05, 2020 History & Physical Bridge Note I have examined the patient, reviewed the History & Physical and in the interval since the performance of the History & Physical I have noted the following changes of clinical significance: no changes noted
[2020-01-05] MEDS ORDERED: BACITRACIN INJ 50,000 UNIT VIAL ONE (07:06)
[2020-01-05] MEDS ORDERED: ORTHO JOINT ANESTHETIC ONE (07:06)
--- NOTE | 2020-01-05 09:02 | Operative Report ---
Post Operative Report Pre & Post Diagnosis Operation Date: 01/05/20 07:15 Pre-Op Diagnosis: Left knee instability with poly wear status post total knee arthroplasty Post-Op Diagnosis: Left knee instability with poly wear polyethylene post fracture synovitis status post total knee arthroplasty I identified the patient and participated in the time-out.: Yes Procedure Operation Date: 01/05/20 07:15 Actual Procedures p Left Total Knee tibial Poly Exchange(Left) and synovectomy- Saran Curran MD Surgeon Saran Curran MD [employer] YAYO Paris Estimated Blood Loss 10 Findings See Below Tip of polyethylene post fracture with wear of the remainder of the polyethylene post and some lateral compartment polyethylene wear centrally medial side of the polyethylene normal remainder of the knee stable components with some scar tissue in the synovium and chronic synovitis Specimens Tibial polyethylene Drains 2 Hemovac Anesthesia Type MAC Spinal Regional Complications none Disposition Accompanied Patient To Recovery: No Disposition: Recovery Room Indications 74-year-old male who had a index total knee replacement years ago with a journey 1 [employer] knee replacement who recently within the last year developed instability of his knee and exam consistent with failure polyethylene post of posterior stabilized total knee replacement with instability with activities daily living. No loosening of the implants on radiographs. Description of Procedure Patient had spinal regional block anesthetic preop with sedation. Pneumatic tourniquet placed about left upper thigh. Knee exam demonstrated full range of motion and some mid flexion collateral instability. Patient had 0 through 140 degrees range of motion. There was a moderate effusion. The left lower extremity was prepped and draped with ChloraPrep. The previous anterior longitudinal scar was used for incision. The skin was incised sharply and subcutaneous flaps were elevated off and intact quad mechanism. Incision was made through the medial retinaculum extending up to the mid third of the quadriceps tendon and down to the medial tibial tubercle. Intra-articular findings demonstrated some generalized chronic synovitis with some scar tissue and scarred lateral synovial bands. There was some heterotopic bone at the superior aspect of the patella. The patella component was intact with no loosening. The femur and tibial components were stable with no loosening. The tibial polyethylene had a fracture of the tip of the post that would cause instability in flexion and there was wear on the remaining post with deformity of the remaining piece. There was some superficial delamination and wear of the lateral compartment of the tibial polyethylene. The medial side was normal and intact. An electrocautery synovectomy was performed moving all the inflamed scarred synovial tissue occluding using a pituitary rongeur to remove inflamed synovial tissue in the gutters and posterior. The tibial polyethylene was removed with a curved osteotome without difficulty. There were fragments of the tip of the post of the tibial prosthetic and flakes of polyethylene in the notch area which were removed. The knee was copiously irrigated pulsatile lavage antibiotic solution with bacitracin. Trial reduction was performed and I upsized the prior 13 poly-insert to a 15 poly-insert. The mid flexion instability was eliminated and the knee had stable range of motion through full range of motion. The trial was removed orthomix injection performed after further irrigation the final insert was placed which was the journey 1, size 15 posterior stabilized tibial polyethylene. Three-minute Betadine soak was performed further irrigation to me VAC drainage bilateral quadriceps tendon medial retinaculum were closed into [id number] and 1 Vicryl sutures. He was taken through full range of motion and repair was secure. Subcutaneous tissues closed with 2-0 Vicryl skin closed with dimple. Silverlon dressing applied. Patient tolerated procedure well. YAYO Paris has been persistently function is persistent the entire procedure. He assisted in soft tissue retraction, leg positioning, closure of the fascia subcutaneous tissue and skin and dressings and will participate in postop care the patient. I attest to the content of the Intraoperative Record and any orders documented therein. Any exceptions are noted below.
--- NOTE | 2020-01-05 09:31 | Anesthesiology Progress Note ---
Date of Service January 05, 2020 Anesthesia Post Procedure Vital Signs Vital Signs: Temp Pulse Pulse Resp BP Pulse Ox 01/05/20 09:20 81 20 100/60 94 01/05/20 09:12 36.3 C L 88 12 105/60 94 01/05/20 06:11 36.4 C L 70 20 140/92 99 Transfer of Care Handoff Completed per policy Notes Mental Status: alert / awake / arousable Patient Amnestic to Procedure: Yes Nausea / Vomiting: adequately controlled Pain: adequately controlled Airway Patency, RR, SpO2: stable & adequate BP & HR: stable & adequate Hydration State: stable & adequate Neuraxial Anesthesia: was administered and sensory block is resolving Anesthetic Complications: no major complications apparent
--- NOTE | 2020-01-05 09:45 | XRay Report ---
XR knee LT 1 or 2V routine CLINICAL HISTORY: 74 years-old Male presenting with Surgical Post Op. TECHNIQUE: Frontal and crosstable lateral views of the left knee were obtained. COMPARISON: 04/03/2010. FINDINGS: There has been interval revision of the total left knee arthroplasty. No malalignment. No periprosthe tic fracture or lucency. A surgical drain is in place. Overlying skin dimple. Expected intra-articul ar and soft tissue emphysema. IMPRESSION: Expected postsurgical appearance status post total left knee arthroplasty with patellar resurfacing r evision. ACT 112: Negative or not required by law. Electronically signed by: Sami Zaman M.D. 01/05/2020 9:44 AM
[2020-01-05] MEDS ORDERED: COLCHICINE 0.6 MG TAB PO PRN (10:19)
[2020-01-05] MEDS ORDERED: OXYCODONE HCL IR 5 MG TAB (IMMEDIATE RELEASE) PO PRN (10:19)
[2020-01-05] MEDS ORDERED: MAGNESIUM HYDROXIDE SUSP 30 ML UDC PO PRN (10:19)
[2020-01-05] MEDS ORDERED: SODIUM CHLORIDE 0.9% 1000ML 1,000 ML IV SCH (10:19)
[2020-01-05] MEDS ORDERED: HYDROmorphone INJ 0.5 MG/0.5 ML SYR IV PRN (10:19)
[2020-01-05] MEDS ORDERED: NALOXONE HCL 0.4 MG/1 ML VIAL/CARP IV PRN (10:19)
[2020-01-05] MEDS ORDERED: bisacodyL 10 MG SUPP PR PRN (10:19)
[2020-01-05] MEDS ORDERED: PHARMACY GLYCEMIC MGMT CONSULT PRN (10:33)
[2020-01-05] MEDS ORDERED: GLUCOSE 10 TABS/TUBE PO PRN (10:45)
[2020-01-05] MEDS ORDERED: GLUCAGON FOR INJ 1 MG VIAL IM PRN (10:45)
[2020-01-05] MEDS ORDERED: GLUCOSE 40% GEL 15 GM TUBE PO PRN (10:45)
[2020-01-05] MEDS ORDERED: DEXTROSE 50% 50 ML SYRINGE IV PRN (10:45)
[2020-01-05] MEDS ORDERED: CARBOHYDRATES FOR HYPOGLYCEMIA PO PRN (10:45)
--- NOTE | 2020-01-05 11:18 | Pharmacy Report ---
Glycemic Control Consultation - Date of Service January 05, 2020 - Scope Scope: Glycemic Pharmacist consulted by Juni Jang on 01/05 for glycemic control and to write orders per [facility] inpatient glycemic control protocol - Objective Weight: 102.7 kg Accuchecks BSG (last 24hrs): 01/05/20 01/05/20 05:19 09:14 POC Glucose 128 H 111 H - Recent Pertinent Medications Outpatient Anti-diabetic Regimen: * metformin 500 mg bid * A1c = 6.3 % 12/05/19 Risk Factors for Insulin Resistance: * Steroids: none * Recent Surgery: POD 0 * Diet: T2DM - Assessment & Plan Assessment & Plan: ASSESSMENT: * 74 year old male now s/p left total knee exchange. Type 2 diabetic managed only on metformin at home * Pharmacy consulted for glycemic management postop - will utilize basal/bolus insulin postop PLAN FOR INPATIENT GLYCEMIC CONTROL: * Pt is maintained on oral antidiabetic agents as an outpatient * Oral agents are not recommended for inpatient use d/t drug interactions, changing PO intake, and difficulty titrating for acute hyper/hypoglycemia. ADA recommends re-initiating outpatient oral agents 1-2 days prior to discharge if/when appropriate if they were held on admission. * Will hold oral agents for admission and utilize SQ basal bolus insulin regimen which is the recommended regimen for inpatient glycemic control. * Will initiate weight based insulin dosing for insulin kiet patient and titrate based on BSG trends. * Basal insulin * Lantus - hold / not indicated * Bolus insulin * NovoLog per scale ACHS or Q6hrs while NPO * Goal Range: Low 120 mg/dL - High 160 mg/dL * Correction Factor: 25 mg/dL/unit * Nutritional / Prandial insulin per carb ratio of 1 unit per 9 grams CHO consumed * Please note that the plan above was derived based on current level of insulin resistance and hospital stress. These recommendations are appropriate for inpatient admission only. Plan of care upon discharge will need to be reassessed to avoid potential outpatient hypo/hyperglycemia. Thank you.
--- NOTE | 2020-01-05 12:14 | Consultation ---
Date of Consultation January 05, 2020 Assessment & Plan (1) S/P total knee arthroplasty: Post op day# 0 S/P Left TKA by Dr Bina HUGO#10ml -pain management per ortho -wound management per ortho -PT/OT as appropriate -DVT prophylaxis per ortho -incentive spirometry -monitor H&H for acute blood loss anemia; Pre-op Hgb: 16.8 (2) Atrial fibrillation: Chronic a-fib on Coumadin. CHADSVASC: 3 Current rate controlled -Continue diltiazem -Restart Coumadin tonight -Monitor INR (3) Hypertension: SBPs: 90's. Currently asymptomatic -Hold losartan, HCTZ (4) Hyperlipidemia: -Continue atorvastatin (5) Diabetes mellitus, type 2: A1c: 6.3 on 12/05/2019 -Hold metformin -Glycemic pharmacist on board and managing (6) Chronic kidney disease: CKD III Pre-op Cr: 1.6 -Monitor renal functions -Avoid nephrotoxic agents when possible DVT Prophylaxis -SCDs per ortho Disposition per primary team Follows with Dr Kenyon for routine care Pt was seen and care coordinated with Dr Newton. See addendum Pt will be followed by Dr Bennett starting 01/06/2020. Thank you for this consultation. We will follow the patient with you during their hospital stay. You can reach a [facility]06 via pager @ [phone]. Supervising Physician Co-Signing Physician Notes I saw this patient with the physician reading assistant, I participated in the history, physical, review of systems, and physical exam. I reviewed the medications with the patient and the physician reading assistant and helped reconcile the medications. I helped take a detailed family and social history as well. I formulated the assessment and plan personally with the physician reading assistant and went over it with the patient. Physical Exam Gen-AAO x 3, NAD, Afebrile Head-NCAT, EOMI, PERRLA, Anicteric Sclera, No Posterior Pharyngeal Erythema Neck-Supple, No JVD, No Thyromegaly, No Masses, No LAD, No Bruits Lungs-Clear to Auscultation Bilaterally, No Rales, No Rhonchi, No Wheezing, No Crepitus Chest-No S4, +S1, +S2, No S3, No Murmurs, No Rubs, No Gallops, No Ectopy Abdomen-Soft, Bowel Sounds Present, Non Tender, Non Distended, No Hepatomegaly, No Splenomegaly, No Palpable Masses, No Rebound, No Rigidity, No Guarding Musculoskeletal-Tender knee, No CVAT Extremities-No Cyanosis, No Clubbing, No Edema Nuero-Cranial Nerves II-XII grossly intact, Motor WNL, DTRs WNL, Strength WNL, Non Focal Psych-Normal Mood History of Present Illness Requesting Physician: Dr Curran Reason for Consultation: Post op medical management Attending Physician: Saran Curran MD History of Present Illness Pt is 74 y/o M with PMH DM II, HTN, HLD, CKD III, chronic atrial fibrillation on Coumadin seen in medical consultation for postop medical management s/p left TKA today by Dr. Curran. Postop patient reports feeling well. Denies dizziness, CP, shortness of breath, nausea, palpitations, vomiting. Reports leg with some continued numbness. Denies any pain currently. Denies fever/chills, diaphoresis, N/V/D, GAMEZ,neck pain, CP, SOB, orthopnea, cough, sore throat, choking, abdominal pain, weakness,, extremity edema, rashes, urinary symptoms. Allergies Allergy/AdvReac Type Severity Reaction Status Date / Time Beta-Blockers AdvReac Unknown NIGHTMARES Verified 01/05/20 05:39 (Beta-Adrenergic Bloc Home Medications Home Medications Medication Instructions Recorded Confirmed Type atorvastatin 20 mg PO QAM 02/14/19 01/05/20 History colchicine 0.6 mg PO DAILY PRN 02/14/19 01/05/20 History diltiazem HCl [Cartia XT] 240 mg PO QAM 02/14/19 01/05/20 History hydrochlorothiazide 25 mg PO QAM 02/14/19 01/05/20 History losartan 100 mg PO QAM 02/14/19 01/05/20 History metformin 500 mg PO BID 02/14/19 01/05/20 History tamsulosin 0.4 mg PO QPM 02/14/19 01/05/20 History warfarin 5 mg PO 2XWK 02/14/19 01/05/20 History oxycodone-acetaminophen [Percocet] 1 - 2 tab PO .q4-6h PRN #30 tab 03/24/19 01/05/20 Rx warfarin 7.5 mg PO 5XWK 12/12/19 01/05/20 History Patient History Medical History Atrial fibrillation chronic, on warfarin BPH (benign prostatic hyperplasia) Chronic kidney disease stage III- baseline creatinine 1.5-1.6 range Diabetes mellitus, type 2 NIDDM Glaucoma Gout Hyperlipidemia Hypertension Nonischemic cardiomyopathy Surgical History History of cardiac radiofrequency ablation REMOTE/YEARS AGO History of cataract surgery bilateral History of colonoscopy with polypectomy History of laser refractive surgery History of left knee replacement Hx of Achilles tendon repair LEFT Hx of appendectomy Hx of cholecystectomy S/P rotator cuff repair bilateral Family History Mother FHx: breast cancer Other No family history of adverse response to anesthesia Social History Preferred Language: Luxembourgish Communication Ability: Effective Contract Implementation Analyst Required: No Beliefs That Will Affect Care: None Current Living Situation: Significant Other Other Information That Helps Us Care for You: No Feels Safe at Home: Yes Safety Concerns: Feels Safe At This Time Smoking Status: Never smoker Tobacco Type: smokeless tobacco ; Do You Dip or Chew Tobacco: Yes (3 dips daily (advised NPO AM DOS) ; Second Hand Exposure: No ; Tobacco Cessation Education Requested by Patient: No Hx Alcohol Use: Yes Alcohol type: beer Hx Substance Use: No Review of Systems Review of Systems: All systems reviewed & are unremarkable except as noted in HPI & below Physical Exam Physical Exam: General: no distress, WDWN Head: normocephalic, atraumatic Eyes:conjunctiva non-injected, anicteric ENT: normal inspection external ears, nose, mucous membranes moist Neck: supple, trachea midline Lungs: clear, no respiratory distress, no wheezing/rhonchi/rales CV: irregularly irregular, rate 60, no murmur, no pretibial edema Abd: normal BS, soft, non-tender Ext: no calf tenderness; Left leg with dressing and BRANDIE wrap in place with Hemovac with serosanguineous drainage; pedal pushes and pulls intact, distal pulses intact, brisk capillary refill, sensation to light touch intact. Neuro: A&O x 3, no focal deficits noted, normal affect Skin: warm, dry Results & Data ([facility]) Vital Signs (Past 12 Hours) Vital Signs Temp Pulse Pulse Resp BP Pulse Ox 01/05/20 11:59 36.4 C L 62 16 96/63 L 96 01/05/20 11:00 55 L 16 95/61 L 95 01/05/20 10:27 91 H 18 99/62 L 91 01/05/20 09:40 36.7 C 77 16 102/61 99 01/05/20 09:30 77 18 96/61 L 97 01/05/20 09:20 81 20 100/60 94 01/05/20 09:12 36.3 C L 88 12 105/60 94 01/05/20 06:11 36.4 C L 70 20 140/92 99
[2020-01-05] MEDS: INSULIN ASPART 100 UNITS/ML 3 ML PEN SC SCH ×3 (12:22→21:24)
[2020-01-05] MEDS: ACETAMINOPHEN 500 MG TAB PO SCH ×2 (13:19→21:21)
[2020-01-05] MEDS: CEFAZOLIN 2000MG 2,000 MG/15 ML SYR IV SCH ×2 (13:57→22:07)
[2020-01-05] MEDS ORDERED: WARFARIN SOD 7.5 MG TAB PO SCH (16:00)
[2020-01-05] MEDS: DOCUSATE SODIUM 100 MG CAP PO SCH (20:49)
[2020-01-05] MEDS ORDERED: TAMSULOSIN HCL 0.4 MG CAP PO SCH (21:00)
[2020-01-05] MEDS ORDERED: SENNA 8.6 MG TAB PO SCH (21:00)
[2020-01-06] MEDS ORDERED: INSULIN ASPART 100 UNITS/ML 3 ML PEN SC SCH (02:00)
[2020-01-06] MEDS: ACETAMINOPHEN 500 MG TAB PO SCH (05:01)
[2020-01-06 05:34] LABS: Hematocrit (blood only) 38.2 % (42-52); Mean Platelet Volume 9.9 fL (7.4-10.4); Platelet Count 140 K/uL (130-400); RDW Coefficient of Variation 13.9 % (11.5-14.5); RDW Standard Deviation 45.9 fL (36.4-46.3); White Blood Count 9.09 K/uL (4.8-10.8)
[2020-01-06 05:50] LABS: INR 1.1 (0.9-1.1); Prothrombin Time 11.1 Seconds (9.0-12.0)
[2020-01-06 06:01] LABS: Est GFR (African American) 48.8; Est GFR (Non-African American) 42.1; Potassium 3.6 mmol/L (3.5-5.1)
[2020-01-06 06:02] LABS: Calcium 8.5 mg/dl (8.5-10.1); Creatinine Clr Calc Pharmacy 52.2 ml/min
--- NOTE | 2020-01-06 08:01 | Anesthesiology Progress Note ---
Date of Service January 06, 2020 Anesthesia Post Procedure Vital Signs Vital Signs: Temp Pulse Pulse Resp BP Pulse Ox 01/06/20 07:54 36.6 C 103 H 18 145/76 H 96 01/06/20 02:00 36.9 C 60 14 110/72 94 01/05/20 23:03 36.5 C 64 16 114/73 97 01/05/20 20:17 36.5 C 58 L 16 106/61 96 01/05/20 15:03 36.6 C 60 16 99/60 L 93 01/05/20 12:53 37.4 C 62 18 98/60 L 97 01/05/20 11:59 36.4 C L 62 16 96/63 L 96 01/05/20 11:00 55 L 16 95/61 L 95 01/05/20 10:27 91 H 18 99/62 L 91 01/05/20 09:40 36.7 C 77 16 102/61 99 01/05/20 09:30 77 18 96/61 L 97 01/05/20 09:20 81 20 100/60 94 01/05/20 09:12 36.3 C L 88 12 105/60 94 Notes Mental Status: alert / awake / arousable Patient Amnestic to Procedure: Yes Nausea / Vomiting: adequately controlled Pain: adequately controlled Airway Patency, RR, SpO2: stable & adequate BP & HR: stable & adequate Hydration State: stable & adequate Neuraxial Anesthesia: was administered and sensory block resolved Anesthetic Complications: no major complications apparent and Pt Satisfied with anesthetic care
--- NOTE | 2020-01-06 08:41 | Orthopedic Progress Note ---
Date of Service January 06, 2020 Assessment & Plan (1) S/P total knee arthroplasty: POD #1, Left TKA revision tibial poly PT/ OT- Patient will do Home exercise program DVT proph- coumadin D/C home today after lunch. Admission and Anticipated Discharge Date Admission Date: January 05, 2020 Subjective POD #1, Doing well. Denies SOB, CP, N/V. Pain controlled well. Physical Exam Physical Exam: Left knee dressings c/d/i, no drainage, toes/ ankle mobile no calf tenderness. A&Ox3. Results & Data ([facility]) Vital Signs (Past 12 Hours) Vital Signs Temp Pulse Resp BP Pulse Ox 01/06/20 07:54 36.6 C 103 H 18 145/76 H 96 01/06/20 02:00 36.9 C 60 14 110/72 94 01/05/20 23:03 36.5 C 64 16 114/73 97
[2020-01-06] MEDS: DOCUSATE SODIUM 100 MG CAP PO SCH (08:58)
[2020-01-06] MEDS ORDERED: dilTIAZem HCL 240 MG CAPCR PO SCH (09:00)
[2020-01-06] MEDS ORDERED: MULTIVITAMIN TAB PO SCH (09:00)
[2020-01-06] MEDS ORDERED: LOSARTAN POTASSIUM 50 MG TAB PO SCH (09:00)
[2020-01-06] MEDS ORDERED: hydroCHLOROthiazide 25 MG TAB PO SCH (09:00)
[2020-01-06] MEDS ORDERED: ATORVASTATIN 20 MG TAB PO SCH (09:00)
[2020-01-06] MEDS: INSULIN ASPART 100 UNITS/ML 3 ML PEN SC SCH (09:01)
[2020-01-06] MEDS ORDERED: WARFARIN SOD 5 MG TAB PO SCH (16:00)
--- NOTE | 2020-01-16 19:05 | Discharge Summary ---
HISTORY OF PRESENT ILLNESS: This is a 74-year-old male patient of Dr. Curran's complaining of chronic left knee pain and instability for approximately 6 months now. The patient had a total knee arthroplasty approximately 11 years ago. He reports no trauma. 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 The patient wished to proceed with a left total knee arthroplasty, poly exchange, possible revision. PAST MEDICAL HISTORY: Hypertension, atrial fibrillation, sleep apnea, diabetes mellitus. POSTOPERATIVE COURSE: The patient underwent a left total knee arthroplasty, poly exchange and synovectomy on 01/05/2020. He was followed closely with physical therapy, pain control, DVT prophylaxis in the form of Coumadin and medical consultation. The patient did well postoperatively and was discharged home on postoperative day #1. PHYSICAL EXAMINATION: On discharge, left knee dressings were clean, dry and intact. There was no drainage, no calf tenderness. Negative Homans sign. Toes and ankle were mobile. Neurologically and neurovascularly he is intact in his left lower extremity. DIAGNOSES: Status post left total knee arthroplasty, poly exchange and synovectomy, hypertension, atrial fibrillation, sleep apnea and diabetes mellitus. PLAN: The patient was discharged home with a home exercise program. He will continue his preadmission medications including Coumadin for DVT prophylaxis. We will add pain medications as needed. The patient will follow up with Dr. Curran in the office as scheduled.
== END 2020-01-06 10:23 | disposition home or self-care (01) | DRG 488 ==
LOC: ASU 05:00 → 3E 09:20